=== PATIENT | male | born 1940 | race Caucasian/White ===

== ENCOUNTER 2017-03-28 07:29 | Outpatient (CLI) | payer MEDICARE, BC ==
[2017-03-28 08:31] LABS: ALT (SGPT) 26 U/L (8-55); AST (SGOT) 30 U/L (5-34); Albumin 4.2 g/dL (3.4-4.8); Alkaline Phosphatase 47 U/L (40-150); Anion Gap 15 mmol/L (10-20); BUN (Urea Nitrogen) 15 mg/dL (8.4-25.7); Bilirubin, Total 0.8 mg/dL (0.2-1.2); Calc. Creatinine Clearance 0 mL/min (70-130); Calcium 9.4 mg/dL (7.8-10.44); Carbon Dioxide 22 mmol/L (23-31); Cardiac Risk 4.1 (Less than 4.5); Chloride 105 mmol/L (98-107); Cholesterol 141 mg/dl (< 200 Desired); Estimated GFR-MDRD 52; Glucose 97 mg/dL (83-110); HDL Cholesterol 34 mg/dL (>60 Neg Risk); LDL Cholesterol, Calculated 75 mg/dL; Potassium 4.1 mmol/L (3.5-5.1); Protein, Total 7.2 g/dL (5.8-8.1); Sodium 138 mmol/L (136-145); Triglycerides 161 mg/dL (Less than 150)
== END 2017-03-28 07:30 | disposition home or self-care (01) ==
LOC: MADLAB 07:29
PROVIDERS: ATTEND Internal Medicine Cardiovascular Disease
DX: E03.9 Hypothyroidism, unspecified (principal); E78.00 Pure hypercholesterolemia, unspecified
CPT/HCPCS: 36415; 80053; 80061; 84443

== ENCOUNTER 2017-05-06 08:28 | Outpatient (CLI) | payer MEDICARE, BC ==
[2017-05-06 09:37] LABS: ALT (SGPT) 33 U/L (8-55); AST (SGOT) 38 U/L (5-34); Alkaline Phosphatase 45 U/L (40-150); Anion Gap 16 mmol/L (10-20); BUN (Urea Nitrogen) 15 mg/dL (8.4-25.7); Bilirubin, Total 0.7 mg/dL (0.2-1.2); Calc. Creatinine Clearance 0 mL/min (70-130); Calcium 9.8 mg/dL (7.8-10.44); Carbon Dioxide 21 mmol/L (23-31); Cardiac Risk 5.4 (Less than 4.5); Chloride 105 mmol/L (98-107); Cholesterol 145 mg/dl (< 200 Desired); Estimated GFR-MDRD 53; Globulin 3.5 g/dL (2.4-3.5); Glucose 90 mg/dL (83-110); HDL Cholesterol 27 mg/dL (>60 Neg Risk); LDL Cholesterol, Calculated 86 mg/dL; Potassium 5.1 mmol/L (3.5-5.1); Protein, Total 7.5 g/dL (5.8-8.1); Sodium 137 mmol/L (136-145); Triglycerides 158 mg/dL (Less than 150)
[2017-05-06 09:48] LABS: Thyroid Stimulating Hormone 1.2354 uIU/mL (0.35-4.94)
[2017-05-06 10:19] LABS: Hemoglobin 12.1 g/dL (14.0-18.0); MDiff Complete? YES; Manual Diff?? YES; Mean Corpuscular HGB CONC 32.7 g/dL (32.0-36.0); Mean Corpuscular Volume 85.7 fL (80.0-94.0); Mean Platelet Volume 8.3 fL (7.4-10.4); Platelet Count 164 thou/uL (130-400); RBC Distribution Width 12.7 % (11.5-14.5); Red Blood Cell (RBC) Count 4.33 mill/uL (4.70-6.10); White Blood Cell (WBC) Count 3.8 thou/uL (4.8-10.8)
[2017-05-06 10:31] LABS: Band 3 % (5-11); Eosinophils 1 % (0-10); Lymphocytes 35 % (21-51); Monocytes 12 % (0-10); Neutrophil 47 % (42-75); Reactive Lymphocytes 2 % (0-10)
[2017-05-06 10:32] LABS: Anisocytosis SLIGHT = 6-15 cells (100X) (0-5/hpf); PLT Morphology Comment Appears Adequate
--- NOTE | 2017-05-06 10:44 | RAD ---
FOUR VIEWS RIGHT KNEE: Indication: Right knee pain. Comparison: None. FINDINGS: There is moderate patellofemoral and mild mediofemoral tibial joint osteoarthritic change. There is a calcific density seen projecting posterior medial to the knee joint, possibly within an enlarged p opliteal cyst. This may reflect an intraarticular body. This also may reflect heterotopic ossificati on within the medial gastrocnemius head. No acute fracture is evident. IMPRESSION: 1. Mild osteoarthrosis of the right knee, predominately the patellofemoral compartment. 2. 9 mm calcific body seen projecting within the posterior mediastinal soft tissues of the right kne e may reflect intraarticular body within the popliteal cyst or possibly a focus of heterotopic ossif ication within the medial gastrocnemius head. POS: ABDIRASHID
[2017-05-06 12:35] LABS: Bacteria/HPF Rare-Few HPF (None Seen); Bilirubin Negative (Negative); Blood, Urine Negative (Negative); Clarity c (Clear); Glucose, Urine (Dipstick) Negative (Negative); Icto Negative (Negative); Leukocyte Negative (Negative); Nitrite Negative (Negative); Protein, Urine (Dipstick) Negative (Neg-Trace); RBC/HPF 0-3 HPF (0-3); Specific Gravity, Urine 1.015 (1.005-1.030); Squamous Epithelial 0-3 HPF (0-3); Urobilinogen 0.2 mg/dL (0.2-1.0); WBC/HPF 0-3 HPF (0-3); pH, Urine 6.5 (5.0-9.0)
[2017-05-06 17:49] LABS: HBCM Index 0.07 S/CO (0-0.79); HBSAg Index 0.19 S/CO (0-0.99); Hep A IgM AB Non-Reactive (NonReactive); Hep A IgM S/CO 0.13 S/CO (0-0.79); Hep B Surf Ag Non-Reactive S/CO (NonReactive); Hep C IgG Ab Non-Reactive (NonReactive); Hep C Index 0.11 S/CO (0-0.79); Hepatitis B Core IGM Abs Non-Reactive (NonReactive)
== END 2017-05-06 08:29 | disposition home or self-care (01) ==
LOC: MADLABBHPM 08:28
PROVIDERS: ATTEND Family Medicine
DX: E78.5 Hyperlipidemia, unspecified (principal); E03.9 Hypothyroidism, unspecified; R53.83 Other fatigue; M25.561 Pain in right knee; M17.11 Unilateral primary osteoarthritis, right knee
CPT/HCPCS: 36415; 80053; 80061; 80074; 81001; 84443; 85025

== ENCOUNTER 2017-06-26 00:05 | Emergency (ER) | payer MEDICARE, BC ==
[2017-06-26] MEDS ORDERED: Aspirin 325 MG TAB ONE (00:18)
[2017-06-26] MEDS ORDERED: Nitroglycerin 2% Ointment 1 INCH/1 GM Packet ONE (00:18)
[2017-06-26 00:41] LABS: #Basophils 0.1 thou/uL (0.0-0.2); #Eosinphils 0.3 thou/uL (0.0-0.7); #Lymphocytes 1.9 thou/uL (1.20-3.40); #Monocytes 0.5 thou/uL (0.11-0.59); #Neutrophils 1.4 thou/uL (1.40-6.50); %Basophils 1.4 % (0.0-1.0); %Eosinophils 6.9 % (0.0-10.0); %Lymphocytes 45.2 % (21.0-51.0); %Monocytes 12.4 % (0.0-10.0); %Neutrophils 34.2 % (42.0-75.0); Hemoglobin 10.5 g/dL (14.0-18.0); Mean Corpuscular HGB CONC 33.1 g/dL (32.0-36.0); Mean Corpuscular Volume 81.4 fl (80.0-94.0); Mean Platelet Volume 7.5 fL (7.4-10.4); Platelet Count 149 thou/uL (130-400); RBC Distribution Width 12.5 % (11.5-14.5); White Blood Cell (WBC) Count 4.1 thou/uL (4.8-10.8)
[2017-06-26 01:00] LABS: ALT (SGPT) 22 U/L (8-55); AST (SGOT) 25 U/L (5-34); Albumin 3.8 g/dL (3.4-4.8); Alkaline Phosphatase 43 U/L (40-150); Anion Gap 14 mmol/L (10-20); BUN (Urea Nitrogen) 20 mg/dL (8.4-25.7); Bilirubin, Total 0.5 mg/dL (0.2-1.2); Calc. Creatinine Clearance 0 mL/min (70-130); Calcium 9.3 mg/dL (7.8-10.44); Carbon Dioxide 25 mmol/L (23-31); Chloride 104 mmol/L (98-107); Estimated GFR-MDRD 36; Glucose 127 mg/dL (83-110); Protein, Total 6.8 g/dL (5.8-8.1); Sodium 139 mmol/L (136-145)
[2017-06-26 01:02] LABS: CKMB 1.8 ng/mL (0-6.6); Troponin I 0.055 ng/mL (< 0.028)
--- NOTE | 2017-06-26 08:38 | RAD ---
PORTABLE AP CHEST XRAY: DAET: 06/26/17. HISTORY: Chest pain. COMPARISON: 12/12/16. FINDINGS: The cardiac silhouette is magnified by projection but stable in size compared to the prior study and does appear mildly enlarged. Pulmonary vasculature is within normal limits. The lungs are clear. There has been no interval change from the prior exam. IMPRESSION: 1. Mild cardiomegaly without overt congestive heart failure. 2. No acute cardiopulmonary process. POS: DENISE
== END 2017-06-26 01:26 | disposition short-term general hospital (02) ==
LOC: MADERS 00:05
DX: R07.9 Chest pain, unspecified (principal); K21.9 Gastro-esophageal reflux disease without esophagitis; E78.5 Hyperlipidemia, unspecified; I10 Essential (primary) hypertension; Z79.82 Long term (current) use of aspirin; Z79.899 Other long term (current) drug therapy
CPT/HCPCS: 71010; 80053; 82553; 83735; 83880; 84484; 85025; 85730; 93005; 94760

== ENCOUNTER 2023-08-09 17:24 | Inpatient (IN) | payer MEDICARE, BC ==
[2023-08-09] MEDS ORDERED: Albuterol 200 PUFF (6.7GM INHALER) INH PRN (18:34)
[2023-08-09] MEDS ORDERED: Nitroglycerin 0.4 MG TAB (25 Tab Bottle) SL PRN (18:34)
[2023-08-09] MEDS ORDERED: Furosemide 20 MG TAB PO PRN (18:49)
[2023-08-09] MEDS: Atorvastatin Calcium 40 MG TAB PO SCH (20:33)
[2023-08-09] MEDS: Tamsulosin HCl 0.4 MG CAP PO SCH (20:34)
[2023-08-09] MEDS: Hydrocortisone 10 mg Tablet PO SCH (22:57)
[2023-08-10 05:20] LABS: #Basophils 0.1 thou/uL (0.0-0.2); #Eosinphils 0.1 thou/uL (0.0-0.7); #Lymphocytes 2.3 thou/uL (1.20-3.40); #Monocytes 0.9 thou/uL (0.11-0.59); #Neutrophils 6.1 thou/uL (1.40-6.50); %Eosinophils 1.3 % (0.0-10.0); %Lymphocytes 23.8 % (21.0-51.0); %Monocytes 9.9 % (0.0-10.0); %Neutrophils 64.1 % (42.0-75.0); Hematocrit 40.4 % (42.0-52.0); Hemoglobin 13.4 g/dL (14.0-18.0); Mean Corpuscular HGB CONC 33.3 g/dL (32.0-36.0); Mean Corpuscular Hemoglobin 31.1 pg (27.0-31.0); Mean Corpuscular Volume 93.2 fl (78.0-98.0); Mean Platelet Volume 8.2 fL (7.4-10.4); Platelet Count 169 10x3/uL (130-400); RBC Distribution Width 12.3 % (11.5-14.5); Red Blood Cell (RBC) Count 4.33 mill/uL (4.70-6.10); White Blood Cell (WBC) Count 9.5 10x3/uL (4.8-10.8)
[2023-08-10 05:32] LABS: Anion Gap 12 mmol/L (10-20); BUN (Urea Nitrogen) 23 mg/dL (8.4-25.7); Calc. Creatinine Clearance 77 mL/min (70-130); Calcium 9.3 mg/dL (7.8-10.44); Carbon Dioxide 24 mmol/L (23-31); Chloride 103 mmol/L (98-107); Estimated GFR 63; Glucose 122 mg/dL (83-110); Potassium 4.3 mmol/L (3.5-5.1); Sodium 135 mmol/L (136-145)
[2023-08-10] MEDS: Levothyroxine Sodium 75 MCG TAB PO SCH (05:58)
[2023-08-10] MEDS ORDERED: FLU VACC QS2023(65UP)/MF59C/PF 60 MCG/0.5 ML SYRINGE IM ONE (08:15)
[2023-08-10] MEDS: Zinc Sulfate 220 MG CAP PO SCH (09:23)
[2023-08-10] MEDS: Aspirin Chewable 81 MG TAB PO SCH (09:23)
[2023-08-10] MEDS: Dexamethasone 4 MG TAB PO SCH (09:23)
[2023-08-10] MEDS: Ezetimibe 10 MG TAB PO SCH (09:23)
[2023-08-10] MEDS: Ascorbic Acid 500 mg Chewable Tablet PO SCH (09:23)
[2023-08-10] MEDS: Lisinopril 5 MG TAB PO SCH (09:24)
[2023-08-10] MEDS: Atorvastatin Calcium 40 MG TAB PO SCH (20:56)
[2023-08-10] MEDS: Tamsulosin HCl 0.4 MG CAP PO SCH (20:56)
[2023-08-10] MEDS: Hydrocortisone 10 mg Tablet PO SCH (20:56)
[2023-08-11] MEDS: Levothyroxine Sodium 75 MCG TAB PO SCH (05:08)
[2023-08-11] MEDS: Aspirin Chewable 81 MG TAB PO SCH (09:58)
[2023-08-11] MEDS: Zinc Sulfate 220 MG CAP PO SCH (09:58)
[2023-08-11] MEDS: Ezetimibe 10 MG TAB PO SCH (09:58)
[2023-08-11] MEDS: Ascorbic Acid 500 mg Chewable Tablet PO SCH (09:58)
[2023-08-11] MEDS: Lisinopril 5 MG TAB PO SCH (09:58)
[2023-08-11] MEDS: Dexamethasone 4 MG TAB PO SCH (09:59)
[2023-08-11] MEDS: Tamsulosin HCl 0.4 MG CAP PO SCH (20:32)
[2023-08-11] MEDS: Atorvastatin Calcium 40 MG TAB PO SCH (20:32)
[2023-08-11] MEDS: Hydrocortisone 10 mg Tablet PO SCH (20:32)
[2023-08-12] MEDS: Levothyroxine Sodium 75 MCG TAB PO SCH (05:35)
[2023-08-12] MEDS: Zinc Sulfate 220 MG CAP PO SCH (08:17)
[2023-08-12] MEDS: Lisinopril 5 MG TAB PO SCH (08:17)
[2023-08-12] MEDS: Aspirin Chewable 81 MG TAB PO SCH (08:17)
[2023-08-12] MEDS: Ezetimibe 10 MG TAB PO SCH (08:17)
[2023-08-12] MEDS: Ascorbic Acid 500 mg Chewable Tablet PO SCH (08:17)
[2023-08-12] MEDS ORDERED: FLU VACC QS2023(65UP)/MF59C/PF 60 MCG/0.5 ML SYRINGE IM ONE (10:00)
[2023-08-12] MEDS ORDERED: Ondansetron ODT 4 MG TAB PO PRN (17:54)
[2023-08-12] MEDS: Hydrocortisone 10 mg Tablet PO SCH (20:16)
[2023-08-12] MEDS: Tamsulosin HCl 0.4 MG CAP PO SCH (20:16)
[2023-08-12] MEDS: Atorvastatin Calcium 40 MG TAB PO SCH (20:16)
[2023-08-13] MEDS: Levothyroxine Sodium 75 MCG TAB PO SCH (05:08)
[2023-08-13] MEDS: Ascorbic Acid 500 mg Chewable Tablet PO SCH (08:49)
[2023-08-13] MEDS: Aspirin Chewable 81 MG TAB PO SCH (08:49)
[2023-08-13] MEDS: Ezetimibe 10 MG TAB PO SCH (08:49)
[2023-08-13] MEDS: Lisinopril 5 MG TAB PO SCH (08:49)
[2023-08-13] MEDS: Zinc Sulfate 220 MG CAP PO SCH (08:49)
[2023-08-13] MEDS: Tamsulosin HCl 0.4 MG CAP PO SCH (20:21)
[2023-08-13] MEDS: Hydrocortisone 10 mg Tablet PO SCH (20:21)
[2023-08-13] MEDS: Atorvastatin Calcium 40 MG TAB PO SCH (20:21)
[2023-08-14] MEDS: Levothyroxine Sodium 75 MCG TAB PO SCH (05:42)
[2023-08-14] MEDS: Ascorbic Acid 500 mg Chewable Tablet PO SCH (08:08)
[2023-08-14] MEDS: Aspirin Chewable 81 MG TAB PO SCH (08:11)
[2023-08-14] MEDS: Ezetimibe 10 MG TAB PO SCH (08:11)
[2023-08-14] MEDS: Zinc Sulfate 220 MG CAP PO SCH (08:11)
[2023-08-14] MEDS: Lisinopril 5 MG TAB PO SCH (08:12)
[2023-08-14] MEDS: Atorvastatin Calcium 40 MG TAB PO SCH (20:33)
[2023-08-14] MEDS: Tamsulosin HCl 0.4 MG CAP PO SCH (20:33)
[2023-08-14] MEDS: Hydrocortisone 10 mg Tablet PO SCH (20:33)
[2023-08-15 05:29] LABS: Hematocrit 41.9 % (42.0-52.0); Hemoglobin 13.8 g/dL (14.0-18.0); Platelet Count 140 10x3/uL (130-400)
[2023-08-15] MEDS: Levothyroxine Sodium 75 MCG TAB PO SCH (05:37)
[2023-08-15 08:28] VITALS: BMI 32.6
[2023-08-15] MEDS: Ezetimibe 10 MG TAB PO SCH (08:50)
[2023-08-15] MEDS: Ascorbic Acid 500 mg Chewable Tablet PO SCH (08:50)
[2023-08-15] MEDS: Aspirin Chewable 81 MG TAB PO SCH (08:50)
[2023-08-15] MEDS: Zinc Sulfate 220 MG CAP PO SCH (08:50)
[2023-08-15] MEDS: Lisinopril 5 MG TAB PO SCH (08:54)
[2023-08-15] MEDS: Atorvastatin Calcium 40 MG TAB PO SCH (20:38)
[2023-08-15] MEDS: Tamsulosin HCl 0.4 MG CAP PO SCH (20:38)
[2023-08-15] MEDS: Hydrocortisone 10 mg Tablet PO SCH (20:38)
[2023-08-16] MEDS: Levothyroxine Sodium 75 MCG TAB PO SCH (05:43)
[2023-08-16] MEDS: Zinc Sulfate 220 MG CAP PO SCH (08:52)
[2023-08-16] MEDS: Ascorbic Acid 500 mg Chewable Tablet PO SCH (08:52)
[2023-08-16] MEDS: Ezetimibe 10 MG TAB PO SCH (08:52)
[2023-08-16] MEDS: Lisinopril 5 MG TAB PO SCH (08:53)
[2023-08-16] MEDS: Aspirin Chewable 81 MG TAB PO SCH (08:53)
[2023-08-16] MEDS: Tamsulosin HCl 0.4 MG CAP PO SCH (20:57)
[2023-08-16] MEDS: Hydrocortisone 10 mg Tablet PO SCH (20:57)
[2023-08-16] MEDS: Atorvastatin Calcium 40 MG TAB PO SCH (20:59)
[2023-08-17] MEDS: Levothyroxine Sodium 75 MCG TAB PO SCH (05:35)
[2023-08-17] MEDS: Lisinopril 5 MG TAB PO SCH (08:44)
[2023-08-17] MEDS: Zinc Sulfate 220 MG CAP PO SCH (08:44)
[2023-08-17] MEDS: Ezetimibe 10 MG TAB PO SCH (08:44)
[2023-08-17] MEDS: Ascorbic Acid 500 mg Chewable Tablet PO SCH (08:44)
[2023-08-17] MEDS: Aspirin Chewable 81 MG TAB PO SCH (08:44)
[2023-08-17] MEDS ORDERED: Polyethylene Glycol 3350 17 GM Packet PO SCH (17:00)
[2023-08-17] MEDS: Tamsulosin HCl 0.4 MG CAP PO SCH (20:47)
[2023-08-17] MEDS: Atorvastatin Calcium 40 MG TAB PO SCH (20:47)
[2023-08-17] MEDS: Hydrocortisone 10 mg Tablet PO SCH (20:47)
[2023-08-18] MEDS: Levothyroxine Sodium 75 MCG TAB PO SCH (05:10)
[2023-08-18] MEDS: Ezetimibe 10 MG TAB PO SCH (08:33)
[2023-08-18] MEDS: Lisinopril 5 MG TAB PO SCH (08:33)
[2023-08-18] MEDS: Aspirin Chewable 81 MG TAB PO SCH (08:33)
[2023-08-18] MEDS: Ascorbic Acid 500 mg Chewable Tablet PO SCH (08:33)
[2023-08-18] MEDS: Zinc Sulfate 220 MG CAP PO SCH (08:33)
[2023-08-18 08:35] VITALS: BP 116/71
[2023-08-18 08:52] VITALS: TEMP 97.9
[2023-08-18] MEDS ORDERED: Polyethylene Glycol 3350 17 GM Packet PO SCH (09:00)
== END 2023-08-18 17:45 | disposition home or self-care (01) | DRG 947 ==
LOC: MADMS 17:24
PROVIDERS: ADMIT Family Medicine; ATTEND Family Medicine
DX: R53.1 Weakness (principal); J12.82 Pneumonia due to coronavirus disease 2019; U07.1 COVID-19; E23.0 Hypopituitarism; R53.81 Other malaise; I12.9 Hypertensive chronic kidney disease with stage 1 through stage 4 chronic kidney disease, or unspecified chronic kidney disease; Z66 Do not resuscitate; N18.30 Chronic kidney disease, stage 3 unspecified; D63.1 Anemia in chronic kidney disease; E03.9 Hypothyroidism, unspecified; I25.10 Atherosclerotic heart disease of native coronary artery without angina pectoris; E78.5 Hyperlipidemia, unspecified; K21.9 Gastro-esophageal reflux disease without esophagitis; Z79.899 Other long term (current) drug therapy; Z86.16 Personal history of COVID-19; Z82.49 Family history of ischemic heart disease and other diseases of the circulatory system; Z87.891 Personal history of nicotine dependence; Z98.890 Other specified postprocedural states; Z79.52 Long term (current) use of systemic steroids
CPT/HCPCS: 36415; 36416; 71046; 80048; 82565; 85014; 85018; 85025; 85049; 90471; 90694; G0008; J1650; J8540; Q0162

== ENCOUNTER 2024-01-15 15:35 | Emergency (ER) | payer MEDICARE, BC ==
[~2024-01-15 15:35] MED LIST: Iopamidol 370 76% 100 ML VIAL ONE
[2024-01-15 16:30] LABS: ALT (SGPT) 11 U/L (8-55); AST (SGOT) 10 U/L (5-34); Alkaline Phosphatase 42 U/L (40-110); Anion Gap 14 mmol/L (10-20); BUN (Urea Nitrogen) 15 mg/dL (8.4-25.7); Bilirubin, Total 0.4 mg/dL (0.2-1.2); Calc. Creatinine Clearance 0 mL/min (70-130); Calcium 9.1 mg/dL (7.8-10.44); Carbon Dioxide 22 mmol/L (23-31); Chloride 105 mmol/L (98-107); Estimated GFR 55; Globulin 2.9 g/dL (2.4-3.5); Glucose 118 mg/dL (83-110); Potassium 4.5 mmol/L (3.5-5.1); Protein, Total 6.9 g/dL (5.8-8.1); Sodium 136 mmol/L (136-145)
[2024-01-15 16:39] LABS: #Eosinphils 0.1 thou/uL (0.0-0.7); #Lymphocytes 1.4 thou/uL (1.20-3.40); #Monocytes 0.7 thou/uL (0.11-0.59); #Neutrophils 4.7 thou/uL (1.40-6.50); %Basophils 0.6 % (0.0-1.0); %Eosinophils 1.1 % (0.0-10.0); %Lymphocytes 20.4 % (21.0-51.0); %Monocytes 10.2 % (0.0-10.0); %Neutrophils 67.7 % (42.0-75.0); Anisocytosis SLIGHT = 6-15 cells (100X) (0-5/hpf); Hemoglobin 6.2 g/dL (14.0-18.0); Hypochromia MODERATE=16-30 cells (100X) (0-5/hpf); Mean Corpuscular HGB CONC 29.7 g/dL (32.0-36.0); Mean Corpuscular Hemoglobin 21.7 pg (27.0-31.0); Mean Corpuscular Volume 73.2 fl (78.0-98.0); Mean Platelet Volume 7.1 fL (7.4-10.4); Microcytosis SLIGHT = 6-15 cells (100X) (0-5/hpf); Platelet Count 196 10x3/uL (130-400); Poikilocytosis SLIGHT = 6-15 cells (100X) (0-5/hpf); Polychromasia MODERATE = 3-4 cells (100X) (0-2/hpf); RBC Distribution Width 18.2 % (11.5-14.5); Red Blood Cell (RBC) Count 2.87 mill/uL (4.70-6.10); Reflex for Review?? NO; White Blood Cell (WBC) Count 6.9 10x3/uL (4.8-10.8)
[2024-01-15] MEDS ORDERED: Pantoprazole 40 MG VIAL ONE (16:45)
== END 2024-01-15 20:30 | disposition short-term general hospital (02) ==
LOC: MADERS 15:35
DX: K92.2 Gastrointestinal hemorrhage, unspecified (principal); D64.9 Anemia, unspecified; I10 Essential (primary) hypertension; Z87.891 Personal history of nicotine dependence
CPT/HCPCS: 74174; 80053; 82274; 85025; 86850; 86900; 86901; 93005; 96365; C9113; Q9967

== ENCOUNTER 2024-06-02 04:27 | Emergency (ER) | payer MEDICARE, BC ==
[2024-06-02 04:42] LABS: Eosinophils 3 % (0-10); Hematocrit 45.1 % (42.0-52.0); Hemoglobin 14.9 g/dL (14.0-18.0); Lymphocytes 31 % (21-51); MDiff Complete? YES; Mean Corpuscular Hemoglobin 30.7 pg (27.0-31.0); Mean Corpuscular Volume 93.2 fl (78.0-98.0); Mean Platelet Volume 6.9 fL (7.4-10.4); Monocytes 13 % (0-10); Neutrophil 53 % (42-75); Platelet Count 145 10x3/uL (130-400); RBC Distribution Width 11.7 % (11.5-14.5); Red Blood Cell (RBC) Count 4.84 mill/uL (4.70-6.10); White Blood Cell (WBC) Count 6.8 10x3/uL (4.8-10.8)
[2024-06-02 05:01] LABS: ALT (SGPT) 62 U/L (8-55); AST (SGOT) 70 U/L (5-34); Albumin 3.8 g/dL (3.4-4.8); Alkaline Phosphatase 56 U/L (40-110); Anion Gap 19 mmol/L (10-20); BUN (Urea Nitrogen) 10 mg/dL (8.4-25.7); Bilirubin, Total 1.5 mg/dL (0.2-1.2); Calc. Creatinine Clearance 0 mL/min (70-130); Calcium 9.7 mg/dL (7.8-10.44); Carbon Dioxide 21 mmol/L (23-31); Chloride 98 mmol/L (98-107); Estimated GFR 54; Globulin 3.7 g/dL (2.4-3.5); Glucose 211 mg/dL (83-110); Potassium 2.9 mmol/L (3.5-5.1); Protein, Total 7.5 g/dL (5.8-8.1); Sodium 135 mmol/L (136-145); Troponin I 0.033 ng/mL (< 0.028)
[2024-06-02 05:12] LABS: INR-International Normal Ratio 1.1; Prothrombin Time 14.1 sec (12.0-14.7)
[2024-06-02 05:13] LABS: PTT 30.8 sec (22.9-36.1)
[2024-06-02 05:20] LABS: Lipase 22 U/L (8-78); Magnesium 1.7 mg/dL (1.6-2.6)
[2024-06-02 05:39] LABS: Influenza A by NAA Not Detected (NotDetected); Influenza B by NAA Not Detected (NotDetected); SARS-CoV-2 NAA Rapid Test Not Detected (NotDetected)
[2024-06-02] MEDS ORDERED: Potassium Chloride 20 MEQ (100 mL) BAG ONE (05:58)
[2024-06-02] MEDS ORDERED: Potassium Bicarbonate/Cit Ac 20 MEQ TAB ONE (05:58)
[2024-06-02 07:03] LABS: Bilirubin Negative (Negative); Blood, Urine Negative (Negative); Clarity Clear (Clear); Glucose, Urine (Dipstick) Negative (Negative); Ketone, Urine 15 mg/dL (Negative); Leukocyte Negative (Negative); Nitrite Negative (Negative); Protein, Urine (Dipstick) Trace mg/dL (Neg-Trace); Specific Gravity, Urine 1.015 (1.005-1.030)
[2024-06-02] MEDS ORDERED: Sodium Chloride 0.9% 100 ML ONE (07:08)
[2024-06-02] MEDS ORDERED: Piperacillin/Tazobactam 4.5 GM VIAL ONE (07:08)
[2024-06-02] MEDS ORDERED: NS 0.9% w/ 20 MEQ KCL 1,000 ML ONE (07:12)
[2024-06-02 07:19] LABS: Bacteria/HPF Rare-Few HPF (None Seen); CAUTI Indications for Culture Alt mental st,lethar; Mucous/LPF Few LPF (<2+); RBC/HPF 0-3 HPF (0-3); Squamous Epithelial 0-3 HPF (0-3); WBC/HPF 0-3 HPF (0-3)
[2024-06-02 07:20] LABS: Urine Culture Reflex No No
[2024-06-02 07:41] LABS: Base Excess-Venous 0.1 mmol/L (-2.0 to 3.0); Bicarbonate (HCO3v) 23.8 mmol/L (22.0-28.0); CO2 Tension (PvCO2) 35.2 mmHg (42.0-51.0); Calcium, Ionized 1.03 mmol/L (1.15-1.33); Chloride 98 mmol/L (98-107); Hemoglobin - Calc 14.8 g/dL (14.0-18.0); Potassium 2.9 mmol/L (3.5-5.1); Sodium 133 mmol/L (138-145); T. Carbon Dioxide 24.9 mmol/L (22.0-28.0); vO2 Saturation-calc 98.1 % (60.0-85.0)
[2024-06-02 07:48] LABS: Acetaminophen Less than 10 mcg/mL (10.0-30.0); Alcohol Less than 10.0 mg/dL (Less than 10); Salicylate Less than 8.0 mg/dL (15.0-30.0)
[2024-06-02 08:12] LABS: Troponin I 0.027 ng/mL (< 0.028)
[2024-06-02 08:15] LABS: Amphetamine Not Detected (NotDetected); Barbiturates Screen Not Detected (NotDetected); Benzodiazepine Screen Not Detected (NotDetected); Cocaine Metabolite Screen Not Detected (NotDetected); Methadone Not Detected (NotDetected); Methamphetamine Not Detected (NotDetected); Opiate Screen Not Detected (NotDetected); Oxycodone Screen Not Detected (NotDetected); Phencyclidine (PCP) Not Detected (NotDetected); THC/Cannabinoid Screen Not Detected (NotDetected); Tricyclic Screen Not Detected (NotDetected)
[2024-06-02] MEDS ORDERED: Iopamidol 370 76% 100 ML VIAL ONE (09:00)
== END 2024-06-02 10:25 | disposition short-term general hospital (02) ==
LOC: MADERS 04:27
DX: K57.92 Diverticulitis of intestine, part unspecified, without perforation or abscess without bleeding (principal); R79.89 Other specified abnormal findings of blood chemistry; G93.40 Encephalopathy, unspecified; E87.6 Hypokalemia; I45.81 Long QT syndrome; E03.9 Hypothyroidism, unspecified; K21.9 Gastro-esophageal reflux disease without esophagitis; I10 Essential (primary) hypertension; E78.2 Mixed hyperlipidemia; Z79.899 Other long term (current) drug therapy; R07.89 Other chest pain
CPT/HCPCS: 36415; 71045; 74177; 80053; 80306; 80307; 81001; 82330; 82803; 83605; 83690; 83735; 83880; 84484; 85025; 85610; 85730; 87040; 93005; 96365; 96366; 96368; J2543; J3480; Q9967